=== PATIENT | male | born 2000 | race Caucasian/White ===

== ENCOUNTER 2020-07-05 11:00 | Emergency (ER) | payer OTHER ==
[~2020-07-05] VITALS: Ht 188 cm; Wt 72.3 kg
[2020-07-05] MEDS ORDERED: IBUP-1022 PO (12:53)
[2020-07-05] MEDS ORDERED: IBUPROFEN 600MG TAB PO ONE (13:00)
[2020-07-05 13:10] VITALS: BP 131/66
== END 2020-07-05 13:12 | disposition home or self-care (01) ==
LOC: M ED 11:00
DX: S23.3XXA Sprain of ligaments of thoracic spine, initial encounter (principal); V43.52XA Car driver injured in collision with other type car in traffic accident, initial encounter; Y92.9 Unspecified place or not applicable; Y93.9 Activity, unspecified; Y99.9 Unspecified external cause status; F17.200 Nicotine dependence, unspecified, uncomplicated